=== PATIENT | male | born 1980 | race African-American/Black ===

== ENCOUNTER 2018-06-13 11:05 | Inpatient (IN) | payer MEDICAID ==
--- NOTE | 2018-06-13 11:24 | EDPHY ---
H & P Stated Complaint: Sickle cell crisis "3wks", SpO2 75%RA, diffuse pain, last crisis 1mo LOG SKIDDER Time Seen by Provider: 06/13/18 11:23 HPI/ROS: CHIEF COMPLAINT: "Sickle cell pain crisis" HISTORY OF PRESENT ILLNESS: The patient is brought to the emergency department with complaints of a sickle cell pain crisis. The patient is currently homeless. He recently established care with [facility]. His last hospitalization was in March at the [facility]. The patient is in the process of reestablishing all of his regular outpatient medications which he has not yet filled. He presents to the ED with complaints of generalized body pain and arthralgias. He reports mild dyspnea. Patient was hospitalized for pneumonitis an aspiration with a associated sickle cell pain crisis in March of this year. REVIEW OF SYSTEMS: A comprehensive 10 point review of systems is otherwise negative aside from elements mentioned in the history of present illness. Source: Patient Exam Limitations: No limitations - Personal History Current Tetanus/Diphtheria Vaccine: Yes - Medical/Surgical History Hx Asthma: Yes Hx Chronic Respiratory Disease: No Hx Diabetes: No Hx Cardiac Disease: No Hx Renal Disease: No Hx Cirrhosis: No Hx Alcoholism: No Hx HIV/AIDS: No Hx Splenectomy or Spleen Trauma: No Other PMH: sickle cell anemia, gout, asthma - Social History Smoking Status: Never smoked - Physical Exam Exam: General Appearance: Alert, no distress Eyes: Pupils equal and round no pallor or injection ENT, Mouth: Poor dentition Respiratory: Slight tachypnea, no abnormal breath sounds appreciated Cardiovascular: Regular rate and rhythm Gastrointestinal: Abdomen is soft and nontender, no masses, bowel sounds normal Neurological: 5/5 strength noted all 4 extremities Skin: Warm and dry, no rashes Musculoskeletal: Neck is supple nontender Extremities: symmetrical, full range of motion Constitutional: Initial Vital Signs Heart Rate 77 06/13/18 11:12 Respiratory Rate 18 06/13/18 11:12 Blood Pressure 120/67 06/13/18 11:12 O2 Sat (%) 75 L 06/13/18 11:12 O2 Delivery Mode Nasal Cannula O2 (L/minute) 4 Allergies/Adverse Reactions: No Known Allergies Allergy (Unverified 06/13/18 11:12) Medical Decision Making - Diagnostics Imaging Results: Imaging Impressions Chest X-Ray 06/13/18 11:28 Impression: Borderline compensated CHF. ED Course/Re-evaluation: The patient presents to the ED with a sickle cell pain crisis. The patient was last hospitalized in [place] about a month ago requiring intubation in the intensive care unit. The patient reportedly has been homeless. He has been moving around different critical access hospital's and was in [facility] before moving to [place] 3 weeks ago. He has been seen at [facility] and they were attempting to fill his numerous outpatient medications. He was noted to be hypoxic and was sent to the emergency department. In the ED the patient complains of diffuse pain typical of his sickle cell crisis. The patient was noted to be hypoxic and corrects with minimal oxygen. The patient's vital signs are otherwise stable. The patient is noted to be anemic. The patient will require admission to the hospital. Consultation is made with the hospitalist service. As an outpatient the patient is supposed to be on colchicine, allopurinol, hydroxyurea, folic acid, gabapentin, Jadenu, Lumigan and ProAir The patient will be admitted to Dr. Jared Reed from the hospitalist service in the setting of his hypoxia. Differential Diagnosis: Differential diagnosis considered includes sickle cell anemia, sickle cell crisis, acute chest syndrome, pneumonia - Data Points Laboratory Results: Laboratory Results 06/13/18 11:25 06/13/18 11:25 18 06/13/18 11:25 11:25 WBC 15.63 10^3/uL H 10^3/uL (3.80-9.50) RBC 2.53 10^6/uL L 10^6/uL (4.40-6.38) Hgb 8.4 g/dL L g/dL (13.7-17.5) Hct 23.1 % L % (40.0-51.0) MCV 91.3 fL fL (81.5-99.8) MCH 33.2 pg pg (27.9-34.1) MCHC 36.4 g/dL g/dL (32.4-36.7) RDW 28.3 % H % (11.5-15.2) Plt Count 343 10^3/uL 10^3/uL (150-400) MPV 10.2 fL fL (8.7-11.7) Neut % (Auto) 48.0 % % (39.3-74.2) Lymph % (Auto) 35.8 % % (15.0-45.0) Sharkey % (Auto) 10.6 % % (4.5-13.0) Eos % (Auto) 4.4 % % (0.6-7.6) Baso % (Auto) 0.6 % % (0.3-1.7) Nucleat RBC Rel Count 9.2 % H % (0.0-0.2) Absolute Neuts (auto) 7.50 10^3/uL H 10^3/uL (1.70-6.50) Absolute Lymphs (auto) 5.60 10^3/uL H 10^3/uL (1.00-3.00) Absolute Monos (auto) 1.66 10^3/uL H 10^3/uL (0.30-0.80) Absolute Eos (auto) 0.69 10^3/uL H 10^3/uL (0.03-0.40) Absolute Basos (auto) 0.09 10^3/uL 10^3/uL (0.02-0.10) Absolute Nucleated RBC 1.44 10^3/uL H 10^3/uL (0-0.01) Immature Gran % 0.6 % % (0.0-1.1) Immature Gran # 0.09 10^3/uL 10^3/uL (0.00-0.10) RBC/WBC/PLT Morphology TNP Platelet Estimate ADEQUATE (ADEQ) Polychromasia 3+ H Hypochromasia 1+ H Microcytic Cells 2+ H Sickle Cells 2+ H Oval Macrocytes 1+ H Smear Review By Pending Sodium 139 mEq/L mEq/L (135-145) Potassium 4.8 mEq/L mEq/L (3.3-5.0) Chloride 107 mEq/L mEq/L (97-110) Carbon Dioxide 24 mEq/l mEq/l (22-31) Anion Gap 8 mEq/L mEq/L (6-14) BUN 20 mg/dL mg/dL (7-23) Creatinine 0.9 mg/dL mg/dL (0.7-1.3) Estimated GFR > 60 Glucose 98 mg/dL mg/dL (70-100) Calcium 9.5 mg/dL mg/dL (8.5-10.4) Medications Given: Discontinued Medications Hydromorphone HCl (Dilaudid) 1 mg IVP EDNOW ONE Stop: 06/13/18 11:29 Last Admin: 06/13/18 11:33 Dose: 1 mg Sodium Chloride (Ns) 1,000 mls @ 0 mls/hr IV ONCE ONE PRN Reason: Wide Open Stop: 06/13/18 11:29 Last Admin: 06/13/18 11:28 Dose: 1,000 mls Sodium Chloride (Ns) 1,000 mls @ 0 mls/hr IV ONCE ONE; Wide Open PRN Reason: Protocol Stop: 06/13/18 11:28 Last Admin: 06/13/18 11:30 Dose: Not Given Departure - Departure Disposition: [facility] Acute Clinical Impression: Sickle cell crisis Condition: Fair Referrals: NONE *PRIMARY CARE P,. [Primary Care Provider] - As per Instructions
[2018-06-13] MEDS ORDERED: NS 1,000 ML IV ONE ×2 (11:27→11:28)
[2018-06-13] MEDS ORDERED: HYDROmorphONE/DILAUDID 2 MG/ML INJ IVP ONE ×2 (11:28→13:24)
[2018-06-13 11:38] LABS: PLATELET COUNT 343 10^3/uL (150-400)
--- NOTE | 2018-06-13 11:38 | ASMTCMCOM ---
CM Note CM Note Notes: Pt in FED from [facility], referral from CM (Evie). Pt in Sickle Cell pain crisis. Pt is new to [place] from [place]. He is connected with [facility], PCP is Karmen Bull. He was prescribed medications from prior PCP (Andrew) that need to be filled. Medicaid was recently reactivated. Additional needs and DC plans DENIS KRUSE to follow. Date Signed: 06/13/2018 11:37 AM Electronically Signed By:Shawnee Le LCSW
[2018-06-13] MEDS ORDERED: HYDROmorphONE/DILAUDID 1 MG/ML INJ IVP ONE (15:41)
[2018-06-13] MEDS ORDERED: NALOXONE HCL 0.4 MG/ML INJ IVP PRN (15:41)
[2018-06-13] MEDS ORDERED: ALBUTEROL 60 PUFFS/8 GM MDI IH PRN (15:48)
[2018-06-13] MEDS ORDERED: ACETAMINOPHEN 325 MG TAB PO PRN (15:49)
[2018-06-13] MEDS ORDERED: ONDANSETRON DISINTEGRATING 4 MG TAB PO PRN (15:49)
[2018-06-13] MEDS ORDERED: ONDANSETRON 4 MG/2 ML VIAL IVP PRN (15:49)
[2018-06-13] MEDS: HYDROmorphONE/DILAUDID 6 MG/30 ML PCA IV PRN (16:10)
[2018-06-13] MEDS: GABAPENTIN 300 MG CAP PO SCH ×2 (16:10→22:59)
[2018-06-13] MEDS: NS 1,000 ML IV SCH (16:10)
--- NOTE | 2018-06-13 16:27 | GHP ---
DATE OF ADMISSION: 06/13/2018 The patient is a 38-year-old gentleman with history of sickle cell disease who presents with pain con sistent with his typical crisis. He was recently hospitalized at the [facility] for a cr dai. He is somewhat new to [place] and has not been seen in [place] before. He had been living in [place] prior to this and getting his care there. He is originally from [place]. He denies any history or complications of sickle cell disease such as bone infections. He takes Dila udid pills somewhere between 4 and 16 on a daily basis for his pain. He is not smoke cigarettes. He denies recent fever, chills, cough, sputum, nausea, vomiting, diarrhea. REVIEW OF SYSTEMS: Complete 10-point review of systems conducted, negative except as noted in the HP I. PAST MEDICAL HISTORY: Asthma, sickle cell disease, gout. FAMILY HISTORY: His mother has sickle cell disease. Father is a carrier. SOCIAL HISTORY: Currently living in the [facility]. No alcohol. No tobacco. No drugs. Not . No children. ALLERGIES: No known drug allergies. HOME MEDICATIONS: Albuterol, allopurinol, bimatoprost eye drops, brimonidine eye drops, colchicine, deferasirox, folic acid, gabapentin, hydroxyurea. PHYSICAL EXAMINATION: PRESENTING VITALS: Blood pressure 120/67, pulse 77, breathing 18 times a prieto te, 75% on room air, now 97% on 4 L. GENERAL: No acute distress. HEENT: Sclerae anicteric. Orophar ynx is clear. Poor dentition without odor. NECK: Supple. No lymphadenopathy or JVD. LUNGS: Carol r to auscultation bilaterally. HEART: S1, S2. Not tachycardic. ABDOMEN: Soft, nontender, nondist ended. LOWER EXTREMITIES: Without edema. Calves nontender. Dorsalis pedis pulses are 2+ bilateral ly. SKIN: Without rash. NEUROLOGIC: Exam is nonfocal. LABS: White count 15.6, hematocrit is 23.1, hemoglobin 8.4, unknown baseline, platelets of 343. Sod ium 139, potassium 4.8, chloride 107, bicarb 24, BUN 20, creatinine 0.9, glucose is 98. Chest x-ray interpreted by me shows no acute cardiopulmonary disease. I discussed the case Dr. Rocky WolffDr. Jhony wood. ASSESSMENT/PLAN: 38-year-old gentleman with sickle cell crisis. 1. Sickle cell crisis. We will give him IV fluids. Dilaudid PARTNER MANAGER with a custom dose of 1 mg every 1 5 minutes, given home dosing of Dilaudid. We will also provide him with oxygen and IV fluids. We wi ll send hemoglobin S panel and have Hematology see him. 2. Hypoxia: On presentation is a little difficult to interpret as his abnormal hemoglobin can inter fere with pulse ox. We will follow. 3. Leukocytosis. He is without fever or localizing symptoms other than the all-over pain consistent with his crises. We will follow. If he has a fever, we should start blood cultures. Prophylaxis l ow molecular heparin. DISPOSITION: Inpatient status. /[id number]/MODL
[2018-06-13] MEDS: BRIMONIDINE 0.1% 5 ML OPHT.BTL RTEYE SCH (20:14)
[2018-06-13] MEDS ORDERED: BIMATOPROST 0.01% 2.5 ML OPHT.BTL EACHEYE SCH (21:00)
[2018-06-14] MEDS: NS 1,000 ML IV SCH ×2 (01:11→08:28)
[2018-06-14 06:18] LABS: INR 1.25 (0.83-1.16); PROTIME(PATIENT) 15.9 SEC (12.0-15.0)
[2018-06-14 06:53] LABS: PLATELET COUNT 270 10^3/uL (150-400)
[2018-06-14] MEDS: HYDROmorphONE/DILAUDID 6 MG/30 ML PCA IV PRN (08:20)
[2018-06-14] MEDS: GABAPENTIN 300 MG CAP PO SCH ×2 (08:27→09:10)
[2018-06-14] MEDS: COLCHICINE 0.6 MG CAP/TAB PO SCH ×2 (08:27→09:10)
[2018-06-14] MEDS: ALLOPURINOL 300 MG TAB PO SCH ×2 (08:27→09:10)
[2018-06-14] MEDS: HYDROXYUREA 500 MG CAP PO SCH ×2 (08:27→09:10)
[2018-06-14] MEDS: FOLIC ACID 1 MG TAB PO SCH ×2 (08:27→09:10)
[2018-06-14] MEDS: BRIMONIDINE 0.1% 5 ML OPHT.BTL RTEYE SCH (08:29)
[2018-06-14 08:31] VITALS: BP 118/53
--- NOTE | 2018-06-14 08:59 | PDMN ---
Medical Necessity Medical necessity: Pt meets IP criteria per MD and MCG [id number]; est los > 2 mn for ongoing tx and management of sickle cell crisis w/hypoxia; admit for further monitoring, IVFs, Dilaudid AUTOMOTIVE CENTER MANAGER & respiratory supportive care; per IP order 06/13/18
[2018-06-14] MEDS ORDERED: Deferasirox [Jadenu] 360 MG PO SCH (09:00)
[2018-06-14] MEDS ORDERED: ENOXAPARIN 40 MG/0.4 ML SYR SC SCH (09:00)
--- NOTE | 2018-06-14 09:19 | HOSPPROG ---
Hospitalist Progress Note Assessment/Plan: I personally reviewed MILAN. Discharged from [facility] 04/21 for crisis with subsequent obtundation from opioids, NZs #Sickle-cell crisis (Hb-SS). -PLANNER CHIEF -Primary Medical Instructor, Dr. Cuong Escamilla -transfuse for HB>7 #Gout: flare. Add prednisone #h/o right leg DVt: not on AC now. Negative U/S 04/17 #Chronic prostatitis: G&C negative at [facility], s/p Cipro #HCV: negative viral load ([facility]) # Objective: Vital Signs Temp Pulse Resp BP Pulse Ox 36.6 C 75 16 118/53 L 93 06/14/18 08:29 06/14/18 08:29 06/14/18 08:29 06/14/18 08:29 06/14/18 08:29 Laboratory Results 06/14/18 05:31 06/14/18 05:31 06/13/18 06/14/18 06/15/18 05:59 05:59 05:59 Intake Total 3500 Output Total 1528 600 Balance 1972 -600 PT 15.9 SEC (12.0-15.0) H 06/14/18 05:31 INR 1.25 (0.83-1.16) H 06/14/18 05:31 ICD10 Worksheet Patient Problems: Problems Problem Status Onset Sickle cell crisis Acute
--- NOTE | 2018-06-14 15:45 | GDS ---
DISCHARGE DIAGNOSES: 1. Sickle cell anemia. 2. Leukocytosis. 3. Gout. 4. Asthma. 5. History of right deep venous thrombosis, not on anticoagulation. Negative ultrasound 04/17. 6. Chronic prostatitis. 7. Hepatitis C. HISTORY OF PRESENT ILLNESS: A 38-year-old male with history of sickle cell disease, who presented with pain consistent with his typical crisis. He was recently in hospital at [facility], but was intubated after high-dose benzos and opioids. Denied any recent fevers, chills, or sweats. He had pain in his feet consistent with gout. He was started on a GLASS EDGER overnight. Reports generalized body pains and arthralgias. Mild dyspnea. HOSPITAL COURSE BY PROBLEM: 1. Suspected sickle cell crisis. He was started on a GLASS EDGER overnight. His primary cleaner and dyer is Dr. Cuong Escamilla. Supportive care. His hemoglobin stayed above 7. 2. Suspected gout flare: Had planned to start prednisone, however, patient left AWOL. 3. History of right leg DVT: He is not on anticoagulation. He had negative ultrasound 04/17 at the [facility]. 4. Chronic prostatitis: G and C were negative at [facility], status post Cipro treatment. 5. Hepatitis C with negative viral load recently. Disp: Patient left AWOL. He became angered after conversation with the oncologist. He would not allow me to examine him or continue medical care. PHYSICAL EXAMINATION: VITAL SIGNS: Today, temperature 36.6, blood pressure 118 /53, heart rate is in the 70s, respirations 16, 93% on 2 L. GENERAL: Thin. He did not participate in a full exam. PSYCHIATRIC: very agitated, screaming, cursing TIME SPENT ON DISCHARGE: Greater than 30 minutes. Tried to scholarship counselor patient to stay in the hospital. /[id number]/MODL MTDD
== END 2018-06-14 11:15 | disposition left against medical advice (07) | DRG 662 ==
LOC: F1N 14:49
PROVIDERS: ADMIT Internal Medicine; ATTEND Internal Medicine
DX: D57.00 Hb-SS disease with crisis, unspecified (principal); B19.20 Unspecified viral hepatitis C without hepatic coma; M10.9 Gout, unspecified; J45.909 Unspecified asthma, uncomplicated; N41.1 Chronic prostatitis; Z86.718 Personal history of other venous thrombosis and embolism
CPT/HCPCS: 85660-90; 96374; 97116-GP; 97161-GP; J1170; J1650; J2405

== ENCOUNTER 2018-06-15 10:43 | Inpatient (IN) | payer MEDICAID ==
[2018-06-15] MEDS ORDERED: NS 1,000 ML IV ONE ×3 (11:26→12:35)
--- NOTE | 2018-06-15 11:44 | EDPHY ---
H & P Time Seen by Provider: 06/15/18 11:24 HPI/ROS: Chief complaint. Sickle cell crisis HPI. Patient is a 38 year old male with history of sickle cell disease. He says he has been hurting all over for the past 3 weeks. Apparently he was admitted at [facility] about 1 month ago and was intubated. He was admitted to our hospital 2 days ago and left AMA yesterday. He returns with same symptoms. He does not have cysts symptoms of shortness of breath despite his low oxygen saturation. He has generalized pain and not focal pain. This is similar to his previous sickle cell crises. Denies fever or cough. ROS 10 systems were reviewed and negative with the exception of the elements mentioned in the history of present illness Past Medical/Surgical History: Past medical history is significant for sickle cell anemia, gout, asthma Social History: Single, nonsmoker, no alcohol Smoking Status: Never smoked Physical Exam: General Appearance: Alert well-developed male moderate distress vitals show temp 37.4 degrees, heart rate 103, O2 saturation 81% on room air Eyes: Mild scleral icterus. ENT, Mouth: Mucous membranes are moist. Respiratory: There are no retractions, lungs are clear to auscultation. Cardiovascular: Regular rate and rhythm. Gastrointestinal: Abdomen is soft and nontender, no masses, bowel sounds normal. Neurological: Awake and alert, sensory and motor exams grossly normal. Skin: Warm and dry, no rashes. Musculoskeletal: Neck is supple nontender. Extremities symmetrical, full range of motion. Psychiatric: Patient is oriented X 3, there is no agitation. Constitutional: Initial Vital Signs Temperature (C) 37.4 C 06/15/18 10:49 Heart Rate 103 H 06/15/18 10:49 Respiratory Rate 18 06/15/18 10:49 Blood Pressure 122/65 H 06/15/18 10:49 O2 Sat (%) 81 L 06/15/18 10:49 O2 Delivery Mode Room Air O2 (L/minute) 4 Allergies/Adverse Reactions: No Known Allergies Allergy (Verified 06/15/18 10:49) Home Medications: Medication Instructions Recorded Albuterol [Proventil Inhaler HFA 2 puffs IH Q4-6PRN PRN 06/13/18 (*)] Allopurinol [Allopurinol 300 MG 300 mg PO DAILY 06/13/18 (RX)] Bimatoprost 0.01% [Lumigan 0.01% 1 drops EACHEYE HS 06/13/18 (*)] Brimonidine 0.1% [ALPHAGAN P 0.1% 1 drops RTEYE BID 06/13/18 (*)] Colchicine [Colchicine (*)] 0.6 mg PO DAILY 06/13/18 Deferasirox [Jadenu] 720 mg PO DAILY 06/13/18 Folic Acid [Folic Acid 1 MG (*)] 1 mg PO DAILY 06/13/18 Gabapentin [Neurontin 300 MG (*)] 300 mg PO TID 06/13/18 Hydroxyurea [Hydrea 500 mg (*)] 500 mg PO DAILY 06/13/18 Medical Decision Making - Diagnostics Imaging Results: Chest x-ray interpreted by me shows no pneumonia. He has global increased in heart size Procedures: IV normal saline. Morphine and 2 L of saline are ordered. He is placed on oxygen with increased in saturation and 93% Dilaudid in addition for pain and another L of saline are ordered ED Course/Re-evaluation: Serial evaluations patient is stable with pain better controlled. He tells me that he would like to stay in the hospital I consulted and discussed case with Dr. Baker for Hospital Medicine who agrees to the admission Differential Diagnosis: This appears to be sickle cell crisis. I considered pneumonia. - Data Points Laboratory Results: Laboratory Results 06/15/18 11:35 06/15/18 11:35 06/15/18 06/15/18 11:35 11:35 WBC 17.39 10^3/uL H 10^3/uL (3.80-9.50) RBC 1.82 10^6/uL L 10^6/uL (4.40-6.38) Hgb 6.0 g/dL L g/dL (13.7-17.5) Hct 16.0 % L* % (40.0-51.0) MCV 87.9 fL fL (81.5-99.8) MCH 33.0 pg pg (27.9-34.1) MCHC 37.5 g/dL H g/dL (32.4-36.7) RDW 25.9 % H % (11.5-15.2) Plt Count 238 10^3/uL 10^3/uL (150-400) MPV 9.9 fL fL (8.7-11.7) Neut % (Auto) Not Reported Lymph % (Auto) Not Reported [place] % (Auto) Not Reported Eos % (Auto) Not Reported Baso % (Auto) Not Reported Nucleat RBC Rel Count Not Reported Absolute Neuts (auto) Not Reported Absolute Lymphs (auto) Not Reported Absolute Monos (auto) Not Reported Absolute Eos (auto) Not Reported Absolute Basos (auto) Not Reported Absolute Nucleated RBC Not Reported Immature Gran % Not Reported Seg Neutrophils % 61.1 % % Band Neutrophils % 0.0 % % Lymphocytes % 32.6 % % Monocytes % 6.3 % % Eosinophils % 0.0 % % Basophils % 0.0 % % Metamyelocytes % 0.0 % % Myelocytes % 0.0 % % Promyelocytes % 0.0 % % Blast Cells % 0.0 % % Immature Gran # Not Reported Absolute Seg Neuts 10.63 10^3/uL H 10^3/uL (1.70-6.50) Absolute Band Neuts 0.00 10^3/uL 10^3/uL (0.00-0.70) Absolute Lymphocytes 5.67 10^3/uL H 10^3/uL (1.00-3.00) Absolute Monocytes 1.10 10^3/uL H 10^3/uL (0.30-0.80) Absolute Eosinophils 0.00 10^3/uL L 10^3/uL (0.03-0.40) Absolute Basophils 0.00 10^3/uL L 10^3/uL (0.02-0.10) Absolute Metamyelocyte 0.00 10^3/mL 10^3/mL (0.00-0.00) Absolute Myelocytes 0.00 10^3/mL 10^3/mL (0.00-0.00) Absolute Promyelocytes 0.00 10^3/uL 10^3/uL (0.00-0.00) Absolute Plasma Cells 0.00 10^3/uL 10^3/uL (0.00-0.00) Nucleated RBCs 4.2 /100 WBC H /100 WBC (0-0) Absolute Blast Cells 0.00 10^3/uL 10^3/uL (0.00-0.00) Plasma Cells % 0.0 % % Platelet Estimate ADEQUATE (ADEQ) Polychromasia 3+ H Hypochromasia 1+ H Microcytic Cells 2+ H Sickle Cells 3+ H Target Cells 1+ H Oval Macrocytes 2+ H Smear Review By Pending Sodium 141 mEq/L mEq/L (135-145) Potassium 4.5 mEq/L mEq/L (3.3-5.0) Chloride 110 mEq/L mEq/L (97-110) Carbon Dioxide 22 mEq/l mEq/l (22-31) Anion Gap 9 mEq/L mEq/L (6-14) BUN 28 mg/dL H mg/dL (7-23) Creatinine 1.0 mg/dL mg/dL (0.7-1.3) Estimated GFR > 60 Glucose 115 mg/dL H mg/dL (70-100) Calcium 8.9 mg/dL mg/dL (8.5-10.4) Medications Given: Discontinued Medications Hydromorphone HCl (Dilaudid) 1 mg IVP EDNOW ONE Stop: 06/15/18 12:36 Last Admin: 06/15/18 12:44 Dose: 1 mg Sodium Chloride (Ns) 1,000 mls @ 0 mls/hr IV EDNOW ONE; Wide Open PRN Reason: Protocol Stop: 06/15/18 11:27 Last Admin: 06/15/18 11:34 Dose: 1,000 mls Sodium Chloride (Ns) 1,000 mls @ 0 mls/hr IV EDNOW ONE; Wide Open PRN Reason: Protocol Stop: 06/15/18 11:27 Last Admin: 06/15/18 11:38 Dose: 1,000 mls Sodium Chloride (Ns) 1,000 mls @ 0 mls/hr IV EDNOW ONE; Wide Open PRN Reason: Protocol Stop: 06/15/18 12:36 Last Admin: 06/15/18 12:47 Dose: 1,000 mls Morphine Sulfate (Morphine) 6 mg IVP EDNOW ONE Stop: 06/15/18 11:51 Last Admin: 06/15/18 12:23 Dose: 6 mg Departure - Departure Disposition: [facility] Acute Clinical Impression: Sickle cell crisis Condition: Fair
[2018-06-15 12:10] LABS: PLATELET COUNT 238 10^3/uL (150-400)
[2018-06-15] MEDS ORDERED: HYDROmorphONE/DILAUDID 2 MG/ML INJ IVP ONE (12:35)
[2018-06-15] MEDS ORDERED: ACETAMINOPHEN 325 MG TAB PO PRN (12:50)
[2018-06-15] MEDS ORDERED: oxyCODONE IR 5 MG TAB PO PRN (12:50)
[2018-06-15] MEDS ORDERED: NS 1,000 ML IV SCH (13:15)
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
--- NOTE | 2018-06-15 13:58 | ASMTCMCOM ---
CM Note CM Note Notes: Chart reviewed. Patient returns to the ER today after leaving AMA yesterday. I have contacted DENIS Kim at [facility] to inform of patient's readmission. Per Judy, patient and/or CM will need to call [facility] daily to "hold" bed for patient. I have contacted DENIS Berger on 1N to inform her of need to keep PTH updated. DENIS to follow Date Signed: 06/15/2018 01:57 PM Electronically Signed By:Sandra Pinto RN
[2018-06-15] MEDS ORDERED: ALBUTEROL 60 PUFFS/8 GM MDI IH PRN (14:08)
[2018-06-15] MEDS ORDERED: NALOXONE HCL 0.4 MG/ML INJ IVP PRN (14:14)
[2018-06-15] MEDS ORDERED: HYDROmorphONE/DILAUDID 6 MG/30 ML PCA IV PRN (14:14)
[2018-06-15] MEDS ORDERED: predniSONE 20 MG TAB PO SCH (14:30)
--- NOTE | 2018-06-15 14:31 | HOSPPROG ---
Hospitalist Progress Note Assessment/Plan: Patient seen and evaluated. Discussed liza Ervin, NIEVES - I agree with her findings and note. Patient difficult to get a history from. complaining of severe pain, also frustrated with his recent care. He left AMA yesterday. PE - hypoxic, uncomfortable, scleral icterus, no resp distress Labs - anemia, leukocytosis Impression: 1. Sickle cell crisis, anemia, leukocytosis 2. Chest pain, cardiomegaly, pulm edema 3. Gout flare Plan: - consult heme - transfuse 1U PRBC, cont hydrea - check LFTs - dilaudid LINE ORDERING CLINICIAN - check ECG, troponin, echo - check blood cultures - colchicine and prednisone Objective: Vital Signs Temp Pulse Resp BP Pulse Ox 37.4 C 91 18 114/56 L 96 06/15/18 10:49 06/15/18 13:23 06/15/18 13:23 06/15/18 13:23 06/15/18 13:23 06/14/18 06/15/18 06/16/18 05:59 05:59 05:59 Intake Total 3000 Balance 3000 ICD10 Worksheet Patient Problems: Problems Problem Status Onset Sickle cell crisis Acute
[2018-06-15] MEDS: GABAPENTIN 300 MG CAP PO SCH ×2 (15:27→21:08)
[2018-06-15] MEDS: COLCHICINE 0.6 MG CAP/TAB PO SCH ×2 (15:27→21:09)
[2018-06-15] MEDS: ENOXAPARIN 40 MG/0.4 ML SYR SC SCH (15:27)
--- NOTE | 2018-06-15 15:51 | ECHO ---
[email or web address] [address] [address] Main: [phone] Fax: [email or web address] Echocardiogram Name: DORY HOFFMANN MR#: [id number] Study Date: 06/15/2018 Study Time: 02:51 PM Date of : 1980 Age: 38 year(s) Height: ( ) Weight: ( ) BSA: Gender: Male Examination: Echo Indication: sickle cell crisis Image Quality: Adequate Contrast: Requested by: Ev Ervin BP: 111 mmHg/54 mmHg Heart Rate: Rhythm: Indication: sickle cell crisis Procedure Staff Art Educator: Alondra Morton [facility] Reading Physician: Christophe Wagner MD Requesting Provider: Conclusions: Mildly dilated left ventricle. EF is 66 %. No regional wall motion abnormality. Normal RV function. The left atirum is borderline dilated. The right atrium is mildly to moderately dilated. Mild mitral valve regurgitation is present. The aortic valve is tri-leaflet and functions normally. Trivial aortic valve regurgitation. Mild tricuspid regurgitation is present. Right ventricular systolic pressure measures 45mmHg. The pulmonary artery pressure is mildly increased. There is no previous echocardiogram for comparison. Measurements: Chambers Valvular Assessment AV/MV Valvular Assessment TV/PV Normal Normal Normal Name Value Range Name Value Range Name Value Range Ao Irina (MM): 2.9 cm (2.2 cm-3.7 AV Vmax: 1.91 m/s (1 m/s-1.7 TR Vmax: 2.97 mm/s ( - ) cm) m/s) TR PGmax: 35 mmHg ( - ) IVSd (2D): 1.0 cm (0.6 cm-1.1 AV maxP mmHg ( - ) syst. PAP: 45 mmHg ( - ) cm) LVOT Vmax: 1.71 m/s (0.7 m/s-1.1 PV Vmax: 1.29 m/s (0.6 m/s-0.9 LVDd (2D): 5.9 cm (4.2 cm-5.9 m/s) m/s) cm) KEVIN (Vmax): 3.4 cm2 ( - ) PV PGmax: 7 mmHg ( - ) LVDs (2D): 3.6 cm (2.1 cm-4 MV E Vmax: 1.15 m/s ( - ) cm) MV A Vmax: 0.91 m/s ( - ) LVPWd (2D): 0.9 cm (0.6 cm-1 MV E/A: 1.26 ( - ) cm) LVOTd 2.2 cm 2.2 cm mm LVEF (BP): 66 % (>=55 %) Patient: DORY HOFFMANN Study Date: 06/15/2018 Page 1 of 2 02:51 PM RVDd(2D): 3.7 cm (1.9 cm-3.8 cmmm) Continued Measurements: Chambers Valvular Assessment AV/MV Valvular Assessment TV/PV Name Value Name Value Name Value LADs: 3.7 cm MV DecTime: 201 m/s CVP (est.): 10 mmHg LADs Lon.3 cm LA Area: 20.0 cm2 LA Volume: 85 ml RA Area: 24.8 cm2 Additional Vessels Name Value Ao Ascendin.6 cm Findings: Left Ventricle: Mildly dilated left ventricle. No LV hypertrophy. Normal global systolic LV function. EF is 66 %. No regional wall motion abnormality. Normal diastolic LV function. Right Ventricle: Normal size right ventricle. Normal RV function. Left Atrium: The left atirum is borderline dilated. Right Atrium: The right atrium is mildly to moderately dilated. Mitral Valve: There is mild thickening of the mitral valve leaflets. Mild mitral valve regurgitation is present. No mitral stenosis is present. Aortic Valve: The aortic valve is tri-leaflet and functions normally. Trivial aortic valve regurgitation. No aortic valve stenosis is present. Tricuspid Valve: The tricuspid valve is normal in appearance and function. Mild tricuspid regurgitation is present. Right ventricular systolic pressure measures 45mmHg. The pulmonary artery pressure is mildly increased. Pulmonic Valve: The pulmonic valve is normal in appearance. There is no pulmonic regurgitation seen. Aorta: Normal size aortic root measuring 2.9 cm. Normal size ascending aorta measuring 2.6 cm. IVC: The IVC is dilated. There is less than 50% respiratory excursion. Pericardium: No pericardial effusion. (No Signature Object) Patient: DORY HOFFMANN Study Date: 06/15/2018 Page 2 of 2 02:51 PM [id number]
[2018-06-15] MEDS: ONDANSETRON 4 MG/2 ML VIAL IVP PRN (15:54)
[2018-06-15] MEDS: HYDROmorphONE/DILAUDID 2 MG/ML INJ IVP PRN ×4 (17:51→23:03)
[2018-06-15] MEDS ORDERED: LORazepam 2 MG/ML INJ IVP ONE ×2 (18:13→18:38)
--- NOTE | 2018-06-15 22:11 | PDCONSULT ---
Adolescent Psychiatrist Note: Patient is a 38-year-old male with reported history of sickle cell disease for which hematology was consulted for management and recommendations during an acute pain crisis. History is limited by patient's extreme pain however some history was taken with the patient was seen 2 days ago for pain crisis. Patient reported at that time of 3 weeks ago he went off all of his medications including his Desferal Hydrea folic acid colchicine and allopurinol. After you stopped taking his medication he began having worsening right first MTP pain that shot up his right leg and involved his entire body. This pain progressively worsened to the point where he could not stand on his right leg and he presented to the emergency room at [facility]. At that time he was found to be 75% on room air he was with a chest x-ray suggesting mild pulmonary edema. His hemoglobin at that time was 8.4 g/dL. Patient left the floor without the hospital without alerting anyone only to return this evening with severe all over body pain. His hemoglobin on admission was 6 g/dL with a white count of 17 ,390. Chest x-ray again was indicative of mild pulmonary edema. Echocardiogram showed a preserved ejection fraction. He did require 4 L of oxygen and was in a severe amount of pain. Review of systems: Unable to be obtained secondary to patient's critically ill status Past medical history: Gout Asthma Sickle cell anemia Past surgical history: Patient denies significant past surgical history Social history: Patient grew up in [place] he has been in [place] for roughly 4 years. He denies history of alcohol drugs or tobacco use. Family history: Unable to obtain due to patient's illness Physical examination General: Male patient in severe distress, mildly toxic appearing HEENT: Pupils equal round and reactive to light scleral icterus and conjunctival pallor is appreciated. Oral mucosa is moist with poor dentition Neck: Distended neck veins Cardiovascular: Tachycardic rate and normal rhythm without rubs thrills gallops or murmurs Chest: Rapid shallow breathing Abdomen: Distended, no organomegaly appreciated Extremities: Warm well perfused, No lower extremity edema, pain to palpation up and down the entire left and right legs, no MTP joint swelling appreciated Medications and allergies reviewed in the electronic medical record Labs and imaging are reviewed as per the electronic medical record Assessment and plan: Patient is a 38-year-old male with a history of sickle cell anemia who presents with a sickle cell pain crisis. Problem #1: Sickle cell pain crisis Patient does not meet criteria for acute chest syndrome however he is requiring 4 L of oxygenation has some mild none cardiac pulmonary edema. Recommend simple transfusion of 1 U of PRBCs;continuing folic acid; aggressive pain management with narcotic pain medicines; continuing oxygen via nasal cannula to prevent hypoxemia. Recommend continuing Hydrea as prescribed. Check patient's iron status before giving any iron chelators. Given the toxicities with iron chelation patient should ideally receive this from a physician for which he has solid follow-up with. Michael Francois
[2018-06-15] MEDS: ONDANSETRON DISINTEGRATING 4 MG TAB PO PRN (23:36)
[2018-06-16] MEDS: HYDROmorphONE/DILAUDID 2 MG/ML INJ IVP PRN ×2 (01:10→05:43)
[2018-06-16] MEDS: BIMATOPROST 0.01% 2.5 ML OPHT.BTL EACHEYE SCH (02:35)
[2018-06-16] MEDS: BRIMONIDINE 0.1% 5 ML OPHT.BTL RTEYE SCH ×3 (02:35→21:57)
[2018-06-16] MEDS: ONDANSETRON DISINTEGRATING 4 MG TAB PO PRN ×2 (06:07→22:06)
[2018-06-16 07:53] LABS: PLATELET COUNT 238 10^3/uL (150-400)
[2018-06-16] MEDS ORDERED: NALOXONE HCL 0.4 MG/ML INJ IVP PRN (08:20)
--- NOTE | 2018-06-16 08:34 | HOSPPROG ---
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 - cont hydrea # Fe overload - not on a chelator currently - defer to heme # chest pain, cardiomegaly, pulm edema - not c/w acute chest syndrome # gout flare - cont pred, colchicine # demand ischemia - suspect d/t severe anemia and small vessel disease - no directed treatment at this time - echo ok Subjective: still c/o R and left sided CP like he was "beat up"; L foot better but still painful Objective: Vital Signs Temp Pulse Resp BP Pulse Ox 36.4 C 89 18 110/63 96 06/16/18 05:52 06/16/18 05:52 06/16/18 05:52 06/16/18 05:52 06/15/18 20:16 Laboratory Results 06/16/18 07:25 06/16/18 07:25 06/15/18 06/16/18 06/17/18 05:59 05:59 05:59 Intake Total 4850 Output Total 1325 Balance 3525 - Physical Exam Constitutional: no apparent distress Cardiovascular: regular rate and rhythym, systolic murmur, No irregularly irregular, No diastolic murmur Respiratory: no respiratory distress, inspiratory crackles (mild L>R), No bronchial breath sounds, No dullness to percussion Gastrointestinal: soft, non-tender abdomen, no palpable masses, No guarding, No rebound, No distension ICD10 Worksheet Patient Problems: Problems Problem Status Onset Sickle cell crisis Acute
[2018-06-16] MEDS: HYDROmorphONE/DILAUDID 6 MG/30 ML PCA IV PRN (08:51)
[2018-06-16] MEDS ORDERED: DEFERASIROX 720 MG PO SCH (09:00)
[2018-06-16] MEDS: GABAPENTIN 300 MG CAP PO SCH ×3 (09:00→21:58)
[2018-06-16] MEDS: FOLIC ACID 1 MG TAB PO SCH (09:00)
[2018-06-16] MEDS: COLCHICINE 0.6 MG CAP/TAB PO SCH ×2 (09:00→21:58)
[2018-06-16] MEDS: predniSONE 20 MG TAB PO SCH (09:00)
[2018-06-16] MEDS: ONDANSETRON 4 MG/2 ML VIAL IVP PRN (09:00)
[2018-06-16] MEDS: ENOXAPARIN 40 MG/0.4 ML SYR SC SCH (09:00)
--- NOTE | 2018-06-16 10:08 | SOAPPROG ---
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 - cont hydrea # Fe overload - not on a chelator currently,holding # chest pain, cardiomegaly, pulm edema - not c/w acute chest syndrome # gout flare - cont pred, colchicine Plan:transfuse 1 unit prbc's, continue ivf, pain meds 06/16/18 09:59 Subjective: Better, still chest pain Objective: Vital Signs Temp Pulse Resp BP Pulse Ox 97.6 F 89 18 110/63 96 06/16/18 05:52 06/16/18 05:52 06/16/18 05:52 06/16/18 05:52 06/15/18 20:16 Laboratory Results 06/16/18 07:25 06/16/18 07:25 06/15/18 06/16/18 06/17/18 05:59 05:59 05:59 Intake Total 4850 Output Total 1325 Balance 3525 Physical Exam - Physical Exam General Appearance: mild distress Respiratory: lungs clear Cardiac/Chest: regular rate, rhythm Abdomen: normal bowel sounds, non-tender ICD10 Worksheet Patient Problems: Problems Problem Status Onset Sickle cell crisis Acute
--- NOTE | 2018-06-16 10:19 | PDMN ---
Medical Necessity [place] [facility] [place] Sickle Cell Disease: 38 yo presents w/ sickle cell crisis and severe pain, hematology consulted. Pt is requiring 4L O2 to maintain sats and has some cardiac pulmonary edema. H/H 01/13 requiring transfusion on admit. 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 H/H still low after transfusion 6.5/17.5. Hx sickle cell anemia, leukocytosis, gout, asthma, R DVT, chronic prostatitis, hep C. Change to IP status 06/16/18 @ 0828 per MD order for ongoing monitoring and treatment of above.
[2018-06-16] MEDS: HYDROXYUREA 500 MG CAP PO SCH (10:47)
[2018-06-16] MEDS: LORazepam 0.5 MG TAB PO PRN ×2 (10:50→22:06)
--- NOTE | 2018-06-16 13:49 | CPEKG ---
Test Reason : OPEN Blood Pressure : / mmHG Vent. Rate : 085 BPM Atrial Rate : 086 BPM P-R Int : 179 ms QRS Dur : 088 ms QT Int : 397 ms P-R-T Axes : 087 059 068 degrees QTc Int : 472 ms Sinus rhythm Probable left atrial enlargement Borderline T wave abnormalities ST elev, probable normal early repol pattern Confirmed by Jeffrey Laureano ([id number]) on 06/16/2018 1:49:27 PM Referred By: Confirmed By:Jeffrey Laureano
[2018-06-17] MEDS: BIMATOPROST 0.01% 2.5 ML OPHT.BTL EACHEYE SCH ×3 (00:04→22:41)
[2018-06-17] MEDS: HYDROmorphONE/DILAUDID 6 MG/30 ML PCA IV PRN ×2 (02:11→20:50)
[2018-06-17 07:44] LABS: PLATELET COUNT 244 10^3/uL (150-400)
[2018-06-17] MEDS: HYDROXYUREA 500 MG CAP PO SCH (09:09)
[2018-06-17] MEDS: FOLIC ACID 1 MG TAB PO SCH (09:09)
[2018-06-17] MEDS: predniSONE 20 MG TAB PO SCH (09:09)
[2018-06-17] MEDS: GABAPENTIN 300 MG CAP PO SCH ×3 (09:09→19:59)
[2018-06-17] MEDS: ENOXAPARIN 40 MG/0.4 ML SYR SC SCH (09:09)
[2018-06-17] MEDS: COLCHICINE 0.6 MG CAP/TAB PO SCH ×2 (09:09→19:59)
[2018-06-17] MEDS: BRIMONIDINE 0.1% 5 ML OPHT.BTL RTEYE SCH ×2 (09:10→20:57)
[2018-06-17] MEDS: LORazepam 0.5 MG TAB PO PRN (09:13)
--- NOTE | 2018-06-17 10:44 | HOSPPROG ---
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 - not ready for PO meds today - cont hydrea # Fe overload - not on a chelator currently - defer to heme # chest pain, cardiomegaly, pulm edema - not c/w acute chest syndrome - cardiomegaly likely d/t sickle cell; not clear why he has pulm edema - likely noncardiogenic # gout flare - still having trouble walking - cont pred, colchicine # demand ischemia - suspect d/t severe anemia and small vessel disease - no directed treatment at this time - echo ok Subjective: feels about 40% better overall; still with diffuse pain; having trouble walkgin d/t gout Objective: Vital Signs Temp Pulse Resp BP Pulse Ox 36.6 C 75 16 104/61 92 06/17/18 10:06 06/17/18 09:02 06/17/18 10:06 06/17/18 10:06 06/17/18 10:06 Laboratory Results 06/17/18 07:22 06/17/18 05:00 06/16/18 06/17/18 06/18/18 05:59 05:59 05:59 Intake Total 1069 Output Total 2225 400 Balance -1156 -400 high risk on iv narcotics - Physical Exam Constitutional: uncomfortable Cardiovascular: regular rate and rhythym, no murmur, rub, or gallop Respiratory: no respiratory distress, no rales or rhonchi, clear to auscultation Gastrointestinal: normoactive bowel sounds, soft, non-tender abdomen, no palpable masses ICD10 Worksheet Patient Problems: Problems Problem Status Onset Sickle cell crisis Acute
--- NOTE | 2018-06-17 11:12 | SOAPPROG ---
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 - cont hydrea # Fe overload - not on a chelator currently,holding # chest pain, cardiomegaly, pulm edema - not c/w acute chest syndrome # gout flare - cont pred, colchicine Plan: continue ivf, pain meds 06/16/18 09:59 06/17/18 11:09 Subjective: still some pain Objective: Vital Signs Temp Pulse Resp BP Pulse Ox 97.9 F 75 16 104/61 92 06/17/18 10:06 06/17/18 09:02 06/17/18 10:06 06/17/18 10:06 06/17/18 10:06 Laboratory Results 06/17/18 07:22 06/17/18 05:00 06/16/18 06/17/18 06/18/18 05:59 05:59 05:59 Intake Total 1069 Output Total 2225 400 Balance -1156 -400 Physical Exam - Physical Exam General Appearance: mild distress Respiratory: lungs clear, normal breath sounds Cardiac/Chest: regular rate, rhythm, systolic murmur Abdomen: normal bowel sounds, non-tender ICD10 Worksheet Patient Problems: Problems Problem Status Onset Sickle cell crisis Acute
[2018-06-17] MEDS: LR 1,000 ML IV SCH ×2 (11:59→20:53)
[2018-06-17] MEDS: ONDANSETRON DISINTEGRATING 4 MG TAB PO PRN (19:59)
[2018-06-17] MEDS: ONDANSETRON 4 MG/2 ML VIAL IVP PRN (20:51)
[2018-06-18] MEDS: LORazepam 0.5 MG TAB PO PRN ×2 (00:36→19:04)
[2018-06-18 05:28] LABS: PLATELET COUNT 301 10^3/uL (150-400)
[2018-06-18] MEDS: ONDANSETRON 4 MG/2 ML VIAL IVP PRN (09:58)
[2018-06-18] MEDS: GABAPENTIN 300 MG CAP PO SCH ×3 (10:02→23:23)
[2018-06-18] MEDS: predniSONE 20 MG TAB PO SCH (10:02)
[2018-06-18] MEDS: FOLIC ACID 1 MG TAB PO SCH (10:02)
[2018-06-18] MEDS: COLCHICINE 0.6 MG CAP/TAB PO SCH ×2 (10:03→20:28)
[2018-06-18] MEDS: BRIMONIDINE 0.1% 5 ML OPHT.BTL RTEYE SCH ×2 (10:03→23:24)
[2018-06-18] MEDS: HYDROXYUREA 500 MG CAP PO SCH (10:03)
[2018-06-18] MEDS: ENOXAPARIN 40 MG/0.4 ML SYR SC SCH (10:05)
[2018-06-18] MEDS: LR 1,000 ML IV SCH (12:52)
--- NOTE | 2018-06-18 13:25 | ASMTCMCOM ---
CM Note CM Note Notes: Plan of care reviewed . Patient in sickle cell crisis and is being managed with hydration and pain control. Call placed to [facility] [phone] to keep him apprised of status, They will continue to hold the patient's bed. Will update them with plans PRN. Plan: Anticipate dc to [facility] when medically cleared. Date Signed: 06/18/2018 01:24 PM Electronically Signed By:Shefali Izaguirre RN
[2018-06-18] MEDS: HYDROmorphONE/DILAUDID 6 MG/30 ML PCA IV PRN ×2 (13:59→20:28)
--- NOTE | 2018-06-18 16:10 | SOAPPROG ---
SOAP Progress Note Assessment/Plan: E&M for sickle cell * sickle cell crisis: He is still mildly hypoxic but no other signs of a severe acute chest syndrome. I recommend that he use an incentive spirometer and to start being little more active in the halls. He is to use narcotics as needed. Plan is to continue hydration, oxygen, and pain control. We will also continue hydroxyurea. * Iron overload: I did not see a recent ferritin and it may be difficult to interpret at this time. This can be done outpatient when he is stable and then a chelator could be used if needed. * gout flare: improved; cont pred, colchicine Subjective: He started to feel better although still needing oxygen. He has some pain in his right lower lung field. He denies any fever. He is hoping that things will calm down enough to go home in a day or 2. Objective: Vital Signs Temp Pulse Resp BP Pulse Ox 36.9 C 93 16 111/65 93 06/18/18 12:20 06/18/18 12:20 06/18/18 12:20 06/18/18 12:20 06/18/18 12:20 Laboratory Results 06/18/18 04:30 06/18/18 04:30 06/17/18 06/18/18 06/19/18 05:59 05:59 05:59 Intake Total 1069 2159.6 Output Total 2225 3150 800 Balance -1156 -990.4 -800 Laboratory Tests 06/16/18 06/16/18 06/17/18 07:25 07:25 05:00 Hgb 6.5 L Total Bilirubin 10.0 H 7.4 H 06/17/18 06/18/18 06/18/18 07:22 04:30 04:30 Hgb 7.1 L 7.2 L Total Bilirubin 7.1 H Physical Exam - Physical Exam General Appearance: no apparent distress Respiratory: rales Cardiac/Chest: regular rate, rhythm, No edema ICD10 Worksheet Patient Problems: Problems Problem Status Onset Sickle cell crisis Acute
[2018-06-18] MEDS ORDERED: HYDROmorphONE/DILAUDID 1 MG/ML INJ IVP PRN (16:35)
--- NOTE | 2018-06-18 16:40 | HOSPPROG ---
Hospitalist Progress Note Assessment/Plan: * Sickle cell crisis -s/p transfusion -IV dilaudid - attempt transition off AMALGAMATOR -continue hydrea * Increased LFT - c/w hemolysis * Iron overload -holding iron chelator per hematology * Gout -increased colchicine + prednisone -continue allopurinol * Hypoxia -wean O2 -does not meet criteria for acute chest syndrome * Hep C Subjective: no new complaints Objective: Vital Signs Temp Pulse Resp BP Pulse Ox 36.8 C 83 16 112/60 90 L 06/18/18 16:27 06/18/18 16:27 06/18/18 16:27 06/18/18 16:27 06/18/18 16:27 Laboratory Results 06/18/18 04:30 06/18/18 04:30 06/17/18 06/18/18 06/19/18 05:59 05:59 05:59 Intake Total 1069 2159.6 Output Total 2225 3150 1700 Balance -1156 -990.4 -1700 - Physical Exam Constitutional: no apparent distress, appears nourished, not in pain Cardiovascular: regular rate and rhythym, no murmur, rub, or gallop Respiratory: no respiratory distress, no rales or rhonchi, clear to auscultation Gastrointestinal: normoactive bowel sounds, soft, non-tender abdomen, no palpable masses Skin: no rashes or abrasions, no fluctuance, no induration Neurologic: AAOx3, sensation intact bilaterally Psychiatric: interacting appropriately, not anxious, not encephalopathic, thought process linear ICD10 Worksheet Patient Problems: Problems Problem Status Onset Sickle cell crisis Acute
[2018-06-18] MEDS ORDERED: HYDROmorphONE/DILAUDID 2 MG/ML INJ IVP PRN (18:30)
[2018-06-18] MEDS ORDERED: HYDROmorphONE/DILAUDID 2 MG/ML INJ IVP ONE (19:52)
[2018-06-18] MEDS ORDERED: NALOXONE HCL 0.4 MG/ML INJ IVP PRN (19:52)
--- NOTE | 2018-06-18 20:16 | HOSPPROG ---
Hospitalist Progress Note Assessment/Plan: Called by nursing to come talk with patient who is very upset regarding changes to his pain medications. Patient states that he feels very upset that he and Dr. Ridley had created what he thought was a plan for his pain-he states he was under the impression that he would be on GRAIN UNLOADER MACHINE tonight and transition to orals in the morning. Shortly before I evaluated the patient, his GRAIN UNLOADER MACHINE was discontinued by the hospitalist involved in his care with a plan to begin to transition to orals. Reviewed orders in place: IV push dilaudid and oral oxycodone both available for patient. Reviewed that plan with him, explained that since I am not his doctor, I am reluctant to make changes in his care plan. Patient continues to insist that he feels he had a plan with the oncologist that he felt good about and is only upset that the plan was changed. Reviewed Dr. Ridley' s note, plan states to continue pain management. At this point, given patient's perceived miscommunication and issues around his expectations will resume GRAIN UNLOADER MACHINE. 60 min care time spent, more than half in face to face counseling of patient regarding his care plan as well as in coordination of care with nursing from 6: 50pm to 8pm. Objective: Vital Signs Temp Pulse Resp BP Pulse Ox 36.8 C 83 16 112/60 90 L 06/18/18 16:27 06/18/18 16:27 06/18/18 16:27 06/18/18 16:27 06/18/18 16:27 Laboratory Results 06/18/18 04:30 06/18/18 04:30 06/17/18 06/18/18 06/19/18 05:59 05:59 05:59 Intake Total 1069 2159.6 1001 Output Total 2225 3150 1700 Balance -1156 -990.4 -699 ICD10 Worksheet Patient Problems: Problems Problem Status Onset Sickle cell crisis Acute
[2018-06-18] MEDS: ONDANSETRON DISINTEGRATING 4 MG TAB PO PRN (20:42)
[2018-06-18] MEDS: BIMATOPROST 0.01% 2.5 ML OPHT.BTL EACHEYE SCH (23:25)
[2018-06-19 05:14] LABS: PLATELET COUNT 311 10^3/uL (150-400)
[2018-06-19] MEDS: HYDROmorphONE/DILAUDID 6 MG/30 ML PCA IV PRN (06:39)
[2018-06-19 08:02] VITALS: BP 93/52
[2018-06-19] MEDS ORDERED: ALLOPURINOL 300 MG TAB PO SCH (09:00)
[2018-06-19] MEDS: GABAPENTIN 300 MG CAP PO SCH (09:45)
[2018-06-19] MEDS: COLCHICINE 0.6 MG CAP/TAB PO SCH (09:45)
[2018-06-19] MEDS: FOLIC ACID 1 MG TAB PO SCH (09:45)
[2018-06-19] MEDS: predniSONE 20 MG TAB PO SCH (09:45)
[2018-06-19] MEDS: HYDROXYUREA 500 MG CAP PO SCH (09:45)
[2018-06-19] MEDS: ENOXAPARIN 40 MG/0.4 ML SYR SC SCH (09:47)
[2018-06-19] MEDS ORDERED: HYDROmorphONE/DILAUDID 4 MG TAB PO PRN (10:25)
[2018-06-19] MEDS ORDERED: HYDROXYUREA 500 MG CAP PO SCH (10:25)
--- NOTE | 2018-06-19 10:59 | SOAPPROG ---
DENZEL Progress Note Assessment/Plan: E&M for sickle cell * sickle cell crisis: He is still mildly hypoxic but no other signs of a severe acute chest syndrome. He states this is long standing and doesn't like using oxygen. I recommend that he use an incentive spirometer and stay active. He is to use narcotics as needed. Plan is to stop hydration and iv pain control and change to po. I will increase hydroxyurea to 15 mg/kg/day or 1000 mg. * Iron overload: I did not see a recent ferritin and it may be difficult to interpret at this time. This can be done outpatient when he is stable and then a chelator could be used if needed. * gout flare: improved; stop prednisone; continue allopurinol colchicine Subjective: Had a disagreement last night which he claims made his pain worse. He wants to switch to oral and try to go home today. Objective: Vital Signs Temp Pulse Resp BP Pulse Ox 37.0 C 97 14 93/52 L 86 L 06/19/18 06:50 06/19/18 08:00 06/19/18 08:00 06/19/18 08:00 06/19/18 08:00 Laboratory Results 06/19/18 04:38 06/19/18 04:30 06/18/18 06/19/18 06/20/18 05:59 05:59 05:59 Intake Total 2159.6 1351 Output Total 3150 2000 600 Balance -990.4 -649 -600 Laboratory Tests 06/18/18 06/18/18 06/19/18 04:30 04:30 04:30 WBC 19.26 H Hgb 7.2 L Plt Count 301 Creatinine 0.7 0.7 Total Bilirubin 7.1 H 6.2 H 06/19/18 04:38 WBC 13.35 H Hgb 6.5 L Plt Count 311 Creatinine Total Bilirubin Physical Exam - Physical Exam General Appearance: no apparent distress Respiratory: lungs clear Cardiac/Chest: regular rate, rhythm Abdomen: soft, No organomegaly ICD10 Worksheet Patient Problems: Problems Problem Status Onset Sickle cell crisis Acute
--- NOTE | 2018-06-19 15:09 | ASMTCMCOM ---
CM Note CM Note Notes: Patient has been medically cleared for discharge. He is reluctant to explore other care options to help him manage his Sickle Cell disease. He wants to leave. I have notified [facility] that he is discharging. We will provide him with a bus pass. CM available should other needs arise. Plan: DC to [facility] Plan of care reviewed . Patient in sickle cell crisis and is being managed with hydration and pain control. Call placed to [facility] [phone] to keep him apprised of status, They will continue to hold the patient's bed. Will update them with plans PRN. Date Signed: 06/19/2018 03:09 PM Electronically Signed By:Shefali Izaguirre RN
--- NOTE | 2018-06-19 19:22 | GDS ---
DISCHARGE DIAGNOSES: 1. Sickle cell crisis. 2. Hemolytic anemia. 3. Iron overload. 4. Acute gout exacerbation. 5. Chronic hypoxemia, oxygen refused. 6. Hepatitis C. HISTORY: The patient is a 38-year-old male with sickle cell disease. He presented with a sickle robin l crisis. He received a blood transfusion. He was hydrated and got IV Dilaudid and oxygen therapy. He was seen here in consultation by hematology. He eventually improved, was able to wean off the IV Dilaudid pump. He is prescribed oral Dilaudid as an outpatient and did not request any narcotic pre scriptions at the time of hospital discharge. 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 Ann Marie Lynn at [facility] for ongoing management of sickle cell disease. Hematology recommended holding his iron chelator until he is back establish ed under a manual control auger press operator's care. He had a gout flare that was treated with colchicine and prednisone and had improvement. He has chronic hypoxemia with oxygen saturations chronically in the mid 80s. He refuses home oxygen, this is probably not good for his long-term sickle cell disease. He gets very angry when anyone sug gests that altitude may be contributing to his exacerbations. He did not meet criteria for acute v[address] syndrome. He was 86% on room air at the time he left the hospital. His H and H had fallen again and hemoglobin 6.5, hematocrit 17.6 at discharge. Hematology did not recommend any further blood tra nsfusions and Hematology felt that he was ready for hospital discharge. DISCHARGE MEDICATIONS: Please see computerized record for full detailed list. There are no new medi cations given at time of hospital discharge. ADDITIONAL DISCHARGE INSTRUCTIONS: Referral to [facility], Dr. Lynn, sickle cell specialty clinic to establish care. Greater than 30 minutes' time was spent arranging this discharge. Patient seen and examined by me on the day of discharge. /[id number]/MODL
== END 2018-06-19 15:21 | disposition home or self-care (01) | DRG 662 ==
LOC: EDUNIT# → F1N 13:49 → OBSVTOIN 06-16 08:28
PROVIDERS: ADMIT Nurse Practitioner; ATTEND Internal Medicine
PROC: 30233N1 Transfusion of Nonautologous Red Blood Cells into Peripheral Vein, Percutaneous Approach (ICD-10-PCS; principal; 2018-06-15)
DX: D57.00 Hb-SS disease with crisis, unspecified (principal); R09.02 Hypoxemia; E83.111 Hemochromatosis due to repeated red blood cell transfusions; M10.072 Idiopathic gout, left ankle and foot; B19.20 Unspecified viral hepatitis C without hepatic coma; J45.909 Unspecified asthma, uncomplicated; Z86.718 Personal history of other venous thrombosis and embolism
CPT/HCPCS: 83020-90; 85660-90; 96374; 97116-GP; 97161-GP; 99001-90; G0378; J1170; J1650; J2060; J2270; J2405; J7512; P9016

== ENCOUNTER 2018-07-04 23:30 | Emergency (ER) | payer MEDICAID ==
[2018-07-05] MEDS ORDERED: NS 500 ML IV ONE (00:02)
[2018-07-05] MEDS ORDERED: KETOROLAC 15 MG/1 ML SDV IVP ONE (00:02)
[2018-07-05] MEDS ORDERED: HYDROmorphONE/DILAUDID 2 MG/ML INJ IVP ONE ×2 (00:02→02:03)
--- NOTE | 2018-07-05 00:28 | EDPHY ---
H & P Stated Complaint: syncope/fall 3 days ago, low back pain getting worse Time Seen by Provider: 07/04/18 23:44 HPI/ROS: HPI The patient presents from the correction with pain throughout his back. It begins in his neck and radiates down to his pelvis. It has been present for the last 3 days after a fall though has gotten progressively worse than his back feels more stiff than usual, it is achy in nature, not associated with any numbness or tingling of his arms or legs. His fall occurred after an episode of dizziness and he lost consciousness. He feels that this was a syncopal episode. He has not had any chest pain, shortness of breath, palpitations. REVIEW OF SYSTEMS 10 systems were reviewed and negative with the exception of the elements mentioned in the history of present illness. PMHx: Sickle cell disease, recently admitted for sickle cell pain crisis to this hospital, no local remote sensing technologist, chronic hypoxia, has been recommended for supplemental oxygen, however declines, saturations are usually in the mid 80s. Soc Hx: Recently relocated to [place], was previously living at [facility], living at [facility] now FHx: PHYSICAL General Appearance: Alert, no distress Eyes: Pupils equal and round no pallor or injection ENT, Mouth: Mucous membranes moist Respiratory: There are no retractions, lungs are clear to auscultation Cardiovascular: Regular rate and rhythm Gastrointestinal: Abdomen is soft and non-tender, no masses, bowel sounds normal Neurological: A&O, moves all extremities Skin: Warm and dry, no rashes Musculoskeletal: Tenderness throughout his cervical spine Extremities: symmetrical, full range of motion Psychiatric: Patient is oriented X 3, there is no agitation Source: Patient Exam Limitations: No limitations - Personal History Current Tetanus/Diphtheria Vaccine: Yes Current Tetanus Diphtheria and Acellular Pertussis (TDAP): Yes - Medical/Surgical History Hx Asthma: Yes Hx Chronic Respiratory Disease: No Hx Diabetes: No Hx Cardiac Disease: No Hx Renal Disease: No Hx Cirrhosis: No Hx Alcoholism: No Hx HIV/AIDS: No Hx Splenectomy or Spleen Trauma: No Other PMH: sickle cell anemia, gout, asthma - Social History Smoking Status: Never smoked Constitutional: Initial Vital Signs Heart Rate 85 07/04/18 23:34 Respiratory Rate 20 07/04/18 23:34 Blood Pressure 110/68 07/04/18 23:34 O2 Sat (%) 88 L 12/05/18 23:34 O2 Delivery Mode Room Air Allergies/Adverse Reactions: No Known Allergies Allergy (Verified 07/04/18 23:31) Home Medications: Medication Instructions Recorded Albuterol [Proventil Inhaler HFA 2 puffs IH Q4-6PRN PRN 06/13/18 (*)] Bimatoprost 0.01% [Lumigan 0.01% 1 drops EACHEYE HS 06/13/18 (*)] Brimonidine 0.1% [ALPHAGAN P 0.1% 1 drops RTEYE BID 06/13/18 (*)] Folic Acid [Folic Acid 1 MG (*)] 1 mg PO DAILY 06/13/18 Gabapentin [Neurontin 300 MG (*)] 300 mg PO TID 06/13/18 Hydroxyurea [Hydrea 500 mg (*)] 500 mg PO DAILY 06/13/18 Medical Decision Making - Diagnostics Imaging Results: CT cervical spine shows extensive osteopenia, discussed with Dr. Temple of Radiology. Imaging: Discussed imaging studies w/ performance improvement manager Radiologist, I viewed and interpreted images myself Differential Diagnosis: 38-year-old male with history of sickle cell disease, recent admit for pain crisis, presents with a syncopal episode which occurred 3 days ago, now with back pain throughout his cervical lumbar and thoracic spine with stiffness. On exam, he is only tender in his cervical spine that this is quite diffuse. Differential diagnosis includes neck sprain, cervical spinal fracture, vaso- occlusive crisis. In the emergency department, patient was started on IV fluids and pain medication. Basic labs were drawn. CT scan of his cervical spine was performed. This showed no acute fracture though he does have extensive osteopenia. The patient felt better after receiving pain medication. Labs were checked and seems stable from prior on his day of discharge. He says this pain does not feel like a sickle cell crisis. He feels comfortable going home and will be discharged. - Data Points Laboratory Results: Laboratory Results 07/05/18 00:11 07/05/18 00:11 07/05/18 07/05/18 00:11 00:11 WBC 10.85 10^3/uL H 10^3/uL (3.80-9.50) RBC 2.26 10^6/uL L 10^6/uL (4.40-6.38) Hgb 7.3 g/dL L g/dL (13.7-17.5) Hct 21.1 % L % (40.0-51.0) MCV 93.4 fL fL (81.5-99.8) MCH 32.3 pg pg (27.9-34.1) MCHC 34.6 g/dL g/dL (32.4-36.7) RDW 23.3 % H % (11.5-15.2) Plt Count 388 10^3/uL 10^3/uL (150-400) MPV 10.5 fL fL (8.7-11.7) Neut % (Auto) Not Reported Lymph % (Auto) Not Reported [place] % (Auto) Not Reported Eos % (Auto) Not Reported Baso % (Auto) Not Reported Nucleat RBC Rel Count Not Reported Absolute Neuts (auto) Not Reported Absolute Lymphs (auto) Not Reported Absolute Monos (auto) Not Reported Absolute Eos (auto) Not Reported Absolute Basos (auto) Not Reported Absolute Nucleated RBC Not Reported Immature Gran % Not Reported Seg Neutrophils % 24.3 % % Band Neutrophils % 2.0 % % Lymphocytes % 57.6 % % Monocytes % 9.1 % % Eosinophils % 4.0 % % Basophils % 3.0 % % Metamyelocytes % 0.0 % % Myelocytes % 0.0 % % Promyelocytes % 0.0 % % Blast Cells % 0.0 % % Immature Gran # Not Reported Absolute Seg Neuts 2.64 10^3/uL 10^3/uL (1.70-6.50) Absolute Band Neuts 0.22 10^3/uL 10^3/uL (0.00-0.70) Absolute Lymphocytes 6.25 10^3/uL H 10^3/uL (1.00-3.00) Absolute Monocytes 0.99 10^3/uL H 10^3/uL (0.30-0.80) Absolute Eosinophils 0.43 10^3/uL H 10^3/uL (0.03-0.40) Absolute Basophils 0.33 10^3/uL H 10^3/uL (0.02-0.10) Absolute Metamyelocyte 0.00 10^3/mL 10^3/mL (0.00-0.00) Absolute Myelocytes 0.00 10^3/mL 10^3/mL (0.00-0.00) Absolute Promyelocytes 0.00 10^3/uL 10^3/uL (0.00-0.00) Absolute Plasma Cells 0.00 10^3/uL 10^3/uL (0.00-0.00) Nucleated RBCs 8.1 /100 WBC H /100 WBC (0-0) Absolute Blast Cells 0.00 10^3/uL 10^3/uL (0.00-0.00) Plasma Cells % 0.0 % % Toxic Vacuolation PRESENT H Platelet Estimate ADEQUATE (ADEQ) Giant Platelets PRESENT H Polychromasia 3+ H Basophilic Stippling 1+ H Microcytic Cells 1+ H Pappenheimer Bodies 3+ H Sickle Cells 3+ H Tear Drop Cells 2+ H Oval Macrocytes 2+ H Henry-[place] Bodies 3+ H Elliptocytes 1+ H Keratocytes 1+ H Smear Review By Pending Absolute Retic 0.590 10^6/uL H 10^6/uL (0.050-0.117) Percent Retic 26.05 % H % (0.98-2.67) Sodium 137 mEq/L mEq/L (135-145) Potassium 4.6 mEq/L mEq/L (3.5-5.2) Chloride 107 mEq/L mEq/L (97-110) Carbon Dioxide 21 mEq/l L mEq/l (22-31) Anion Gap 9 mEq/L mEq/L (6-14) BUN 24 mg/dL H mg/dL (7-23) Creatinine 1.0 mg/dL mg/dL (0.7-1.3) Estimated GFR > 60 Glucose 100 mg/dL mg/dL (70-100) Calcium 9.2 mg/dL mg/dL (8.5-10.4) Total Bilirubin 7.4 mg/dL H mg/dL (0.1-1.4) Conjugated Bilirubin 2.1 mg/dL H mg/dL (0.0-0.5) Unconjugated Bilirubin 5.3 mg/dL H mg/dL (0.0-1.1) AST 119 IU/L H IU/L (17-59) ALT 68 IU/L IU/L (21-72) Alkaline Phosphatase 162 IU/L H IU/L (38-126) Total Protein 8.8 g/dL H g/dL (6.3-8.2) Albumin 4.7 g/dL g/dL (3.5-5.0) Medications Given: Discontinued Medications Diazepam (Valium 5 Mg Prepack#4) 1 btl TAKEHOME EDNOW ONE Stop: 07/05/18 02:05 Last Admin: 07/05/18 02:30 Dose: 1 btl Hydromorphone HCl (Dilaudid) 0.5 mg IVP EDNOW ONE Stop: 07/05/18 00:03 Last Admin: 07/05/18 00:13 Dose: 0.5 mg Hydromorphone HCl (Dilaudid) 0.5 mg IVP EDNOW ONE Stop: 07/05/18 02:04 Last Admin: 07/05/18 02:09 Dose: 0.5 mg Sodium Chloride (Ns) 500 mls @ 1,000 mls/hr IV EDNOW ONE PRN Reason: Protocol Stop: 07/05/18 00:31 Last Admin: 07/05/18 00:13 Dose: 500 mls Ketorolac Tromethamine (Toradol) 15 mg IVP EDNOW ONE Stop: 07/05/18 00:03 Last Admin: 07/05/18 00:13 Dose: 15 mg Departure - Departure Disposition: Home, Routine, Self-Care Clinical Impression: Back pain Qualifiers: Back pain location: back pain in unspecified location Chronicity: acute Back pain laterality: midline Qualified Code(s): M54.9 - Dorsalgia, unspecified Fall Qualifiers: Encounter type: initial encounter Qualified Code(s): W19.XXXA - Unspecified fall, initial encounter Syncope Qualifiers: Syncope type: unspecified Qualified Code(s): R55 - Syncope and collapse Sickle cell anemia Qualifiers: Sickle-cell associated disorders: without crisis Qualified Code(s): D57.1 - Sickle-cell disease without crisis Condition: Good Instructions: Back Pain (ED), Lower Back Exercises (ED) Additional Instructions: I [facility] that [facility]2 [facility] for recheck. Referrals: [facility],. [Clinic] - As per Instructions
[2018-07-05 01:00] LABS: PLATELET COUNT 388 10^3/uL (150-400)
[2018-07-05] MEDS ORDERED: DIAZEPAM 5 MG PREPACK#4 BTL TAKEHOME ONE (02:04)
[2018-07-05 02:33] VITALS: BP 105/58
== END 2018-07-05 02:53 | disposition home or self-care (01) ==
DX: M54.9 Dorsalgia, unspecified (principal); R55 Syncope and collapse; E86.9 Volume depletion, unspecified; D57.1 Sickle-cell disease without crisis; Z59.0 Homelessness
CPT/HCPCS: 96374; J1170; J1885

== ENCOUNTER 2018-07-13 17:17 | Observation (INO) | payer MEDICAID ==
[2018-07-13] MEDS ORDERED: NS 1,000 ML IV ONE (17:47)
[2018-07-13] MEDS ORDERED: ONDANSETRON 4 MG/2 ML VIAL IVP ONE (17:47)
[2018-07-13] MEDS ORDERED: HYDROmorphONE/DILAUDID 2 MG/ML INJ IVP ONE (17:47)
--- NOTE | 2018-07-13 17:51 | EDPHY ---
H & P Stated Complaint: Sickle Cell Crisis Time Seen by Provider: 07/13/18 17:38 HPI/ROS: CHIEF COMPLAINT: Sickle cell pain HISTORY OF PRESENT ILLNESS: Patient is a 38-year-old man with history of sickle cell disease. He is not sure the subtype. He also has a history of gout and asthma. He was admitted to the hospital 1 month ago for crisis they resolved with pain medication and IV fluids and steroids for gout flare. He states that over the last couple of days he has had increasing pain throughout his entire body. He particularly has noticed it in his right flank area. No urinary symptoms. He thinks he might be getting a slight cold. No fever. No cough. No chest pain. No shortness of breath. No joint or bony pain. He states that he does not currently have his prescription for Dilaudid because his doctor is working on filling it. He also has a history of chronic hypoxia in the mid 80s and has refused home oxygen treatment. He is currently living in a long-term house.. Severity: Moderate Modifying factors: None REVIEW OF SYSTEMS: Constitutional: denies: chills, fever, recent illness, recent injury EENTM: denies: blurred vision, double vision, nose congestion Respiratory: denies: cough, shortness of breath Cardiac: denies: chest pain, irregular heart rate, lightheadedness, palpitations Gastrointestinal/Abdominal: denies: abdominal pain, diarrhea, nausea, vomiting, blood streaked stools Genitourinary: denies: dysuria, frequency, hematuria, pain Musculoskeletal: See HPI Skin: denies: lesions, rash, jaundice, bruising Neurological: denies: headache, numbness, paresthesia, tingling, dizziness, weakness Hematologic/Lymphatic: denies: blood clots, easy bleeding, easy bruising Immunologic/allergic: denies: HIV/AIDS, transplant 10 systems reviewed and negative except as noted EXAM: GENERAL: Well-appearing, well-nourished and in no acute distress. HEAD: Atraumatic, normocephalic. EYES: Pupils equal round and reactive to light, extraocular movements intact, sclera slightly icteric ENT: Poor dentition, TMs normal, nares patent, oropharynx clear without exudates. Moist mucous membranes. NECK: Normal range of motion, supple without lymphadenopathy or JVD. LUNGS: Breath sounds clear to auscultation bilaterally and equal. No wheezes rales or rhonchi. HEART: Regular rate and rhythm without murmurs, rubs or gallops. ABDOMEN: Soft, nontender, normoactive bowel sounds. No guarding, no rebound. No masses appreciated. BACK: No CVA tenderness, no spinal tenderness, step-offs or deformities EXTREMITIES: Normal range of motion, no pitting or edema. No clubbing or cyanosis. NEUROLOGICAL: Cranial nerves II through XII grossly intact. Normal speech, normal gait. 5/5 strength, normal movement in all extremities, normal sensation , normal reflexes PSYCH: Normal mood, normal affect. SKIN: Warm, dry, normal turgor, no visible rashes or lesions. Source: Patient, Old records Exam Limitations: No limitations - Personal History Current Tetanus/Diphtheria Vaccine: Yes - Medical/Surgical History Hx Asthma: Yes Hx Chronic Respiratory Disease: No Hx Diabetes: No Hx Cardiac Disease: No Hx Renal Disease: No Hx Cirrhosis: No Hx Alcoholism: No Hx HIV/AIDS: No Hx Splenectomy or Spleen Trauma: No Other PMH: sickle cell anemia, gout, asthma - Family History Significant Family History: No pertinent family hx - Social History Smoking Status: Never smoked Alcohol Use: Sober Drug Use: None Constitutional: Initial Vital Signs Temperature (C) 36.7 C 07/13/18 17:26 Heart Rate 91 07/13/18 17:26 Respiratory Rate 18 07/13/18 17:26 Blood Pressure 116/57 L 07/13/18 17:26 O2 Sat (%) 86 L 07/13/18 17:26 O2 Delivery Mode Nasal Cannula O2 (L/minute) 2 Allergies/Adverse Reactions: No Known Allergies Allergy (Verified 07/13/18 17:32) Home Medications: Medication Instructions Recorded Albuterol [Proventil Inhaler HFA 2 puffs IH Q4-6PRN PRN 06/13/18 (*)] Bimatoprost 0.01% [Lumigan 0.01% 1 drops RTEYE DAILY 06/13/18 (*)] Brimonidine 0.1% [ALPHAGAN P 0.1% 1 drops RTEYE DAILY 06/13/18 (*)] Folic Acid [Folic Acid 1 MG (*)] 1 mg PO DAILY 06/13/18 Gabapentin [Neurontin 300 MG (*)] 300 mg PO TID 06/13/18 Hydroxyurea [Hydrea 500 mg (*)] 500 mg PO BID 06/13/18 Medical Decision Making ED Course/Re-evaluation: The patient came with instructions from Dr. Ridley to get a blood transfusion. I will order this. There was also discussion about admitting him with the hospitalist service. They are aware of him. I personally discussed this with the patient. He is not sure that he will require admission. He states that it is not that bad. He wants to try the medication and fluids and transfusion 1st and then re-evaluate. 8:00 p.m. The blood has to come from [facility]. It will be several hours. I will admit for transfusion and pain control. He is asking for another dose of Dilaudid now. Differential Diagnosis: Partial list of the Differential diagnosis considered include but were not limited to; sickle cell crisis, hypoxia, viral infection and although unlikely based on the history and physical exam, I also considered acute chest, CVA, acute coronary disease. - Data Points Laboratory Results: Laboratory Results 07/13/18 17:50 07/13/18 17:50 07/13/18 07/13/18 17:50 17:50 Smear Review By Magdiel SALTER MD Patient ABO/Rh O NEGATIVE Antibody Screen NEGATIVE Crossmatch IS Only See Detail Enhanced Crossmatch See Detail Medications Given: Hydrocodone Bitart/Acetaminophen ([place] 5/325) 1 - 2 tab PO Q4HRS PRN PRN Reason: Pain, Moderate Able to Take PO Stop: 07/23/18 20:29 Last Admin: 07/14/18 13:16 Dose: 2 tab Bimatoprost (Lumigan 0.01%) 1 drops RTEYE DAILY [facility] Stop: 01/10/19 08:59 Last Admin: 07/14/18 08:14 Dose: 1 drop Brimonidine Tartrate (Alphagan P 0.1%) 1 drops RTEYE DAILY [facility] Stop: 01/10/19 08:59 Last Admin: 07/14/18 08:15 Dose: 1 drops Folic Acid (Folic Acid) 1 mg PO DAILY [facility] Stop: 01/10/19 08:59 Last Admin: 07/14/18 08:14 Dose: 1 mg Gabapentin (Neurontin) 300 mg PO TID [facility] Stop: 01/09/19 21:59 Last Admin: 07/14/18 08:14 Dose: 300 mg Hydromorphone HCl (Dilaudid) 0.2 - 0.4 mg IVP Q4HRS PRN PRN Reason: Pain, Severe Unable to Take PO Stop: 07/23/18 20:29 Last Admin: 07/14/18 06:43 Dose: 0.4 mg Hydroxyurea (Hydrea) 500 mg PO BID [facility] Stop: 01/09/19 20:59 Last Admin: 07/14/18 08:15 Dose: 500 mg Lorazepam (Ativan) 0.5 - 1 mg PO Q8HRS PRN PRN Reason: Anxiety, Able to Take PO Stop: 01/09/19 20:29 Last Admin: 07/14/18 08:14 Dose: 0.5 mg Ondansetron HCl (Zofran) 4 mg IVP Q4HRS PRN PRN Reason: Nausea/Vomiting, Can't Take PO Stop: 01/09/19 20:29 Last Admin: 07/14/18 06:43 Dose: 4 mg Oxycodone HCl (Oxycodone Ir) 5 - 10 mg PO Q3HRS PRN PRN Reason: Pain, Severe Able to Take PO Stop: 07/23/18 20:29 Last Admin: 07/14/18 04:30 Dose: 10 mg Discontinued Medications Acetaminophen (Tylenol) 650 mg PO EDNOW ONE Stop: 07/13/18 18:26 Last Admin: 07/13/18 18:31 Dose: 650 mg Diphenhydramine HCl (Benadryl) 25 mg PO EDNOW ONE Stop: 07/13/18 18:26 Last Admin: 07/13/18 18:31 Dose: 25 mg Hydromorphone HCl (Dilaudid) 1 mg IVP EDNOW ONE Stop: 07/13/18 17:48 Last Admin: 07/13/18 18:06 Dose: 1 mg Hydromorphone HCl (Dilaudid) 0.4 mg IVP EDNOW ONE Stop: 07/13/18 20:26 Last Admin: 07/13/18 20:29 Dose: 0.4 mg Sodium Chloride (Ns) 1,000 mls @ 0 mls/hr IV EDNOW ONE; Wide Open PRN Reason: Protocol Stop: 07/13/18 17:48 Last Admin: 07/13/18 18:05 Dose: 1,000 mls Ondansetron HCl (Zofran) 4 mg IVP EDNOW ONE Stop: 07/13/18 17:48 Last Admin: 07/13/18 18:05 Dose: 4 mg Departure - Departure Disposition: [facility] Acute Clinical Impression: Sickle cell crisis Condition: Fair
[2018-07-13 18:03] LABS: PLATELET COUNT 281 10^3/uL (150-400)
[2018-07-13] MEDS ORDERED: ACETAMINOPHEN 325 MG TAB ONE (18:13)
[2018-07-13] MEDS ORDERED: ACETAMINOPHEN 325 MG TAB PO ONE (18:25)
[2018-07-13] MEDS ORDERED: diphenhydrAMINE 25 MG CAP PO ONE (18:25)
[2018-07-13] MEDS ORDERED: HYDROmorphONE/DILAUDID 1 MG/ML INJ IVP ONE (20:25)
[2018-07-13] MEDS ORDERED: HYDROmorphONE/DILAUDID 1 MG/ML INJ ONE (20:27)
[2018-07-13] MEDS ORDERED: ONDANSETRON DISINTEGRATING 4 MG TAB PO PRN (20:30)
[2018-07-13] MEDS ORDERED: ACETAMINOPHEN 325 MG TAB PO PRN (20:30)
[2018-07-13] MEDS ORDERED: oxyCODONE IR 5 MG TAB PO PRN (20:30)
[2018-07-13] MEDS ORDERED: LORazepam 0.5 MG TAB PO PRN (20:30)
[2018-07-13] MEDS ORDERED: ALBUTEROL 60 PUFFS/8 GM MDI IH PRN (20:32)
[2018-07-13] MEDS: HYDROXYUREA 500 MG CAP PO SCH (22:24)
[2018-07-13] MEDS: GABAPENTIN 300 MG CAP PO SCH (22:24)
[2018-07-13] MEDS: HYDROCODONE/APAP 5/325 TAB PO PRN (22:24)
--- NOTE | 2018-07-13 22:44 | PDGENHP ---
History and Physical - Chief Complaint weakness - History of Present Illness Patient is a 38 yo patient with sickle cell anemia and recurrent pain bouts related to this who was sent over today from his oncologist with concerns of being increasingly fatigued and perhaps in need of blood transfusion. given prolonged time to obtain blood for this patient who has required multiple transfusions he will need to be observed overnight for transfusion. He has no other complaints at this time other than fatigue. History Information - Allergies/Home Medication List Allergies/Adverse Reactions: No Known Allergies Allergy (Verified 07/13/18 17:32) Home Medications: Albuterol [Proventil Inhaler HFA (*)] 2 puffs IH Q4-6PRN PRN 06/13/18 [Last Taken 3 Weeks Ago ~05/23/18] Bimatoprost 0.01% [Lumigan 0.01% (*)] 1 drops RTEYE DAILY 06/13/18 [Last Taken 07/13/18] Brimonidine 0.1% [ALPHAGAN P 0.1% (*)] 1 drops RTEYE DAILY 06/13/18 [Last Taken 07/13/18] Folic Acid [Folic Acid 1 MG (*)] 1 mg PO DAILY 06/13/18 [Last Taken 07/13/18] Gabapentin [Neurontin 300 MG (*)] 300 mg PO TID 06/13/18 [Last Taken 07/13/18] Hydroxyurea [Hydrea 500 mg (*)] 500 mg PO BID 06/13/18 [Last Taken 07/13/18] I have personally reviewed and updated: family history, medical history, social history, surgical history Past Medical History: See HPI list - Past Medical History Additional medical history: Past Medical/Surgical History. 1. Sickle Cell Anemia. 2. Leukocytosis. 3. Gout. 4. Asthma. 5. Hx of right DVT, not on anti -coagulation. Negative US 04/17. 6. Chronic prostatitis: G and C were negative at [facility], s/p Cipro treatment. 7. Hepatitis C - recent negative viral load - Surgical History Additional surgical history: See HPI list - Family History Additional family history: Mother has sickle cell. Father is the carrier - Social History Smoking Status: Never smoked Alcohol Use: Sober Drug Use: None Additional social history: Lives at [facility] Review of Systems Review of Systems: ROS: 10pt was reviewed & negative except for what was stated in HPI & below Physical Exam Physical Exam: Temp Pulse Resp BP Pulse Ox 36.6 C 75 16 103/67 92 07/13/18 21:43 07/13/18 21:43 07/13/18 21:43 07/13/18 21:43 07/13/18 21:43 O2 (L/minute) 2 Constitutional: no apparent distress Eyes: PERRL Ears, Nose, Mouth, Throat: moist mucous membranes, hearing normal Cardiovascular: regular rate and rhythym, no murmur, rub, or gallop Respiratory: no respiratory distress, no rales or rhonchi Gastrointestinal: normoactive bowel sounds, soft, non-tender abdomen Genitourinary: no bladder tenderness Skin: warm Musculoskeletal: full muscle strength Neurologic: AAOx3 Psychiatric: interacting appropriately, not anxious Lab Data & Imaging Review 07/13/18 17:50 07/13/18 17:50 WBC 11.20 10^3/uL (3.80-9.50) H 07/13/18 17:50 RBC 2.11 10^6/uL (4.40-6.38) L 07/13/18 17:50 Hgb 7.0 g/dL (13.7-17.5) L 07/13/18 17:50 Hct 19.6 % (40.0-51.0) L 07/13/18 17:50 MCV 92.9 fL (81.5-99.8) 07/13/18 17:50 MCH 33.2 pg (27.9-34.1) 07/13/18 17:50 MCHC 35.7 g/dL (32.4-36.7) 07/13/18 17:50 RDW 24.2 % (11.5-15.2) H 07/13/18 17:50 Plt Count 281 10^3/uL (150-400) 07/13/18 17:50 MPV 10.4 fL (8.7-11.7) 07/13/18 17:50 Neut % (Auto) Not Reported 07/13/18 17:50 Lymph % (Auto) Not Reported 07/13/18 17:50 Dawson % (Auto) Not Reported 07/13/18 17:50 Eos % (Auto) Not Reported 07/13/18 17:50 Baso % (Auto) Not Reported 07/13/18 17:50 Nucleat RBC Rel Count Not Reported 07/13/18 17:50 Absolute Neuts (auto) Not Reported 07/13/18 17:50 Absolute Lymphs (auto) Not Reported 07/13/18 17:50 Absolute Monos (auto) Not Reported 07/13/18 17:50 Absolute Eos (auto) Not Reported 07/13/18 17:50 Absolute Basos (auto) Not Reported 07/13/18 17:50 Absolute Nucleated RBC Not Reported 07/13/18 17:50 Immature Gran % Not Reported 07/13/18 17:50 Seg Neutrophils % 33.0 % 07/13/18 17:50 Band Neutrophils % 0.0 % 07/13/18 17:50 Lymphocytes % 58.8 % 07/13/18 17:50 Monocytes % 3.1 % 07/13/18 17:50 Eosinophils % 5.1 % 07/13/18 17:50 Basophils % 0.0 % 07/13/18 17:50 Metamyelocytes % 0.0 % 07/13/18 17:50 Myelocytes % 0.0 % 07/13/18 17:50 Promyelocytes % 0.0 % 07/13/18 17:50 Blast Cells % 0.0 % 07/13/18 17:50 Immature Gran # Not Reported 07/13/18 17:50 Absolute Seg Neuts 1.73 10^3/uL (1.70-6.50) 07/13/18 17:50 Absolute Band Neuts 0.00 10^3/uL (0.00-0.70) 07/13/18 17:50 Absolute Lymphocytes 3.08 10^3/uL (1.00-3.00) H 07/13/18 17:50 Absolute Monocytes 0.16 10^3/uL (0.30-0.80) L 07/13/18 17:50 Absolute Eosinophils 0.27 10^3/uL (0.03-0.40) 07/13/18 17:50 Absolute Basophils 0.00 10^3/uL (0.02-0.10) L 07/13/18 17:50 Absolute Metamyelocyte 0.00 10^3/mL (0.00-0.00) 07/13/18 17:50 Absolute Myelocytes 0.00 10^3/mL (0.00-0.00) 07/13/18 17:50 Absolute Promyelocytes 0.00 10^3/uL (0.00-0.00) 07/13/18 17:50 Absolute Plasma Cells 0.00 10^3/uL (0.00-0.00) 07/13/18 17:50 Nucleated RBCs 6.2 /100 WBC (0-0) H 07/13/18 17:50 Absolute Blast Cells 0.00 10^3/uL (0.00-0.00) 07/13/18 17:50 Plasma Cells % 0.0 % 07/13/18 17:50 Platelet Estimate ADEQUATE (ADEQ) 07/13/18 17:50 Polychromasia 3+ H 07/13/18 17:50 Basophilic Stippling 2+ H 07/13/18 17:50 Microcytic Cells 1+ H 07/13/18 17:50 Sickle Cells 3+ H 07/13/18 17:50 Target Cells 1+ H 07/13/18 17:50 Oval Macrocytes 2+ H 07/13/18 17:50 Absolute Retic 0.302 10^6/uL (0.050-0.117) H 07/13/18 17:50 Percent Retic 29.65 % (0.98-2.67) H 07/13/18 17:50 Sodium 138 mEq/L (135-145) 07/13/18 17:50 Potassium 4.5 mEq/L (3.5-5.2) 07/13/18 17:50 Chloride 106 mEq/L (97-110) 07/13/18 17:50 Carbon Dioxide 23 mEq/l (22-31) 07/13/18 17:50 Anion Gap 9 mEq/L (6-14) 07/13/18 17:50 BUN 16 mg/dL (7-23) 07/13/18 17:50 Creatinine 0.8 mg/dL (0.7-1.3) 07/13/18 17:50 Estimated GFR > 60 07/13/18 17:50 Glucose 110 mg/dL (70-100) H 07/13/18 17:50 Calcium 8.6 mg/dL (8.5-10.4) 07/13/18 17:50 Total Bilirubin 5.3 mg/dL (0.1-1.4) H 07/13/18 17:50 Conjugated Bilirubin 1.5 mg/dL (0.0-0.5) H 07/13/18 17:50 Unconjugated Bilirubin 3.8 mg/dL (0.0-1.1) H 07/13/18 17:50 AST 138 IU/L (17-59) H 07/13/18 17:50 ALT 83 IU/L (21-72) H 07/13/18 17:50 Alkaline Phosphatase 183 IU/L (38-126) H 07/13/18 17:50 Total Protein 7.9 g/dL (6.3-8.2) 07/13/18 17:50 Albumin 4.1 g/dL (3.5-5.0) 07/13/18 17:50 Patient ABO/Rh O NEGATIVE 07/13/18 17:50 Antibody Screen NEGATIVE 07/13/18 17:50 Crossmatch IS Only See Detail 07/13/18 17:50 Assessment & Plan Assessment: 38 yo M with hx of sickle cell anemia admitted with weakness and worsening anemia # weakness: felt to be 2/2 worsening anemia, treatment as next # sickle cell anemia: with anemia slightly worse than baseline and associated weakness as above, transfuse overnight # chronic pain: not on opiates as an outpatient but requesting pain meds here, pain is mild # observation status Patient new to my care. old records reviewed and summarized as above. care plan reviewed with Dr. Ridley and ER doctor as above.
[2018-07-14] MEDS: HYDROmorphONE/DILAUDID 1 MG/ML INJ IVP PRN ×2 (01:14→06:43)
[2018-07-14] MEDS: ONDANSETRON 4 MG/2 ML VIAL IVP PRN ×2 (01:20→06:43)
[2018-07-14 05:14] LABS: PLATELET COUNT 240 10^3/uL (150-400)
[2018-07-14] MEDS: GABAPENTIN 300 MG CAP PO SCH ×2 (08:14→16:54)
[2018-07-14] MEDS: HYDROXYUREA 500 MG CAP PO SCH (08:15)
[2018-07-14] MEDS: HYDROCODONE/APAP 5/325 TAB PO PRN ×2 (08:22→13:16)
[2018-07-14] MEDS ORDERED: BIMATOPROST 0.01% 2.5 ML OPHT.BTL RTEYE SCH (09:00)
[2018-07-14] MEDS ORDERED: BRIMONIDINE 0.1% 5 ML OPHT.BTL RTEYE SCH (09:00)
[2018-07-14] MEDS ORDERED: FOLIC ACID 1 MG TAB PO SCH (09:00)
--- NOTE | 2018-07-14 15:54 | PDDCSUM ---
Discharge Summary Discharge Summary: Date of Admission: 07/13/2018 Date of Discharge: 07/14/2018 Consultants: none Studies: 1. CXR - cardiomegaly, no infiltrate Discharge Diagnoses: 1. Acute on chronic anemia 2. Sickle cell disease (followed by Dr Ridley) 3. Chronic pain 4. Homelessness Brief Hospital Course: 38 yo M with hx of sickle cell anemia admitted with weakness and worsening anemia. He was transfused 1 unit PRBC with sub-optimal response however the patient felt better. His hematocrit was at his baseline at discharge. He had no evidence of acute chest or acute pain crisis. His home pain medications were resumed at discharge. He is currently staying at [facility] where he has a bed. Medications: Please refer to EMR for complete list. No prescriptions were given this admission. No changes. Follow Up Plan: 1. Continue to follow up with [facility] Physical Exam: Vitals reviewed, O2 saturations >90% on room air at rest. RRR, loud S2. Lungs clear. Abdomen soft. No rashes or edema.
[2018-07-14 16:18] VITALS: BP 109/76
--- NOTE | 2018-07-14 17:22 | ASMTLACE ---
SWAPNAE Length of stay for Answers: 1 day current admission Acuity / Level of Answers: No Care: Did the patient have an inpatient admission? 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
--- NOTE | 2018-07-14 17:52 | ASMTCMCOM ---
CM Note CM Note Notes: Reviewed chart. Pt admitted for sickle cell anemia, pain crisis. History includes homelessness, anemia, leukocytosis, gout, asthma, DVT, Hep C with no viral load and chronic prostatitis. Per Dr. Lin, pt to discharge back to the [facility] today. Per SUNITHA Matias, pt has a bed with [facility] secondary to his sickle cell anemia. Local one way bus pass provided. Per Polly, no further needs. Pt to follow up as directed. No IM signed, not applicable. CM available for any further issues or concerns. Discharge Plan: [facility] independently Date Signed: 07/14/2018 05:52 PM Electronically Signed By:Zenaida Weems RN
--- NOTE | 2018-07-14 17:52 | ASDISCHSUM ---
Discharge Information Plan Status:Homeless/Alf Medically Cleared to Leave:07/13/2018 Discharge Date:07/14/2018 05:48 PM CM D/C Disposition:[facility]re[facility] (Homeless) ADT D/C Disposition:Home, Routine, Self-Care Projected Discharge Date:07/14/2018 05:48 PM Transportation at D/C:Bus Ticket Discharge Delay Reason: Follow-Up Date:07/14/2018 05:48 PM Discharge Slot:2 - 12:01 pm - 18:00 pm Final Diagnosis:Sickle cell anemia, pain crisis, Hep C, anemia, leukocytosis, gout, asthma, hx of DV T, chronic prostatitis Placement Information Patient Contact Information Contact Name:YUMIKO Relationship: Address: Home Phone: Work Phone: City: Alternate Phone: State/[employer] Code: Email: Financial Information Financial Class:Medicaid Primary Plan Desc:MEDICAID [facility] [employer] Primary Plan Number:[id number] Secondary Plan Desc: Secondary Plan Number: Assessment Information LACE LACE Length of stay for Answers: 1 day current admission Acuity / Level of Answers: No Care: Did the patient have an inpatient admission? 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 Pt admitted for sickle cell anemia, pain crisis. History includes homelessness, anemia, leukocytosis, gout, asthma, DVT, Hep C with no viral load and chronic prostatitis. Per Dr. Lin, pt to discharge back to the [facility] today. Per SUNITHA Matias, pt has a bed with [facility] secondary to his sickle cell anemia. Local one way bus pass provided. Per Polly, no further needs. Pt to follow up as directed. No IM signed, not applicable. CM available for any further issues or concerns. Discharge Plan: [facility] independently Date Signed: 07/14/2018 05:52 PM Electronically Signed By:Zenaida Weems RN Intervention Information Intervention Type:Bus Pass Date of Service:07/14/2018 05:22 PM Patient Type:Observation Staff Member:SUNITHA Weems Taylor Hours: Discipline: Severity: Comment:Local, one way ticket.
== END 2018-07-14 17:48 | disposition home or self-care (01) ==
LOC: F1N 21:11
PROVIDERS: ADMIT Internal Medicine; ATTEND Internal Medicine
PROC: 30233N1 Transfusion of Nonautologous Red Blood Cells into Peripheral Vein, Percutaneous Approach (ICD-10-PCS; principal; 2018-07-13)
DX: D57.00 Hb-SS disease with crisis, unspecified (principal); E86.9 Volume depletion, unspecified; G89.29 Other chronic pain; D72.829 Elevated white blood cell count, unspecified; M10.9 Gout, unspecified; J45.909 Unspecified asthma, uncomplicated; N41.1 Chronic prostatitis; B19.20 Unspecified viral hepatitis C without hepatic coma; Z86.718 Personal history of other venous thrombosis and embolism; Z59.0 Homelessness
CPT/HCPCS: 71045; 96361; 96374; 96375; 96376; 99285; G0378; P9016; 86905-90; 99001-90; J1170; J2405